=== PATIENT | female | born 1965 | race Hispanic/Latino ===

== ENCOUNTER 2024-01-25 19:18 | Inpatient (IN) | payer MEDICAID ==
[2024-01-25] VITALS (8 sets, daily range): BP systolic 91–150; BP diastolic 38–121
[~2024-01-25] VITALS: Ht 172.7 cm; Wt 48.7 kg
[~2024-01-25 19:18] MED LIST: ARICEPT10 MG PO; BOUDREAUXS BUTT TOP; COZAAR100 MG PO; MEMANTINE HYDROC5 MG PO
--- NOTE | 2024-01-25 19:50 | NUR ---
PT TO RM 10 VIA WHEELCHAIR
--- NOTE | 2024-01-25 20:00 | NUR ---
PT ARRIVED WITH 2X FAMILY MEMBERS, BROUGHT TO HOSPITAL FROM MRI OFFICE DUE TO STAFF TELLING THEM SHE NEED IMMEDIATE ATTENTION. PT DECUBITUS ULCERS TO BUTTOCK THAT PCP HAS BEEN TRYING TO TREAT FOR SEVERAL MONTHS WITH SUCCESS. MRI PAPERWORK SHOWED POSSIBLE ABCESS WITHIN THE WOUND AREA. PT BED BOUND AND REQUIRES FEEDING ASSISTANCE. FAMILY TAKES CARE OF HER AT HOME WITH HH DAILY. TAJIK SPEAKING WITH LITTLE COMMUNICATION. PT HAS HX OF DEMENTIA AND SCHIZOPHRENIA.
[2024-01-25] MEDS ORDERED: PIPERACILLIN Sodium-Tazobactam 3.375 GM in SODIUM CHLORIDE 0.9% 100 ML IV ONE (20:05)
[2024-01-25] MEDS ORDERED: VANCOMYCIN HCL 1 GM in SODIUM CHLORIDE 0.9% 250 ML IV ONE (20:05)
[2024-01-25] MEDS ORDERED: VANCOMYCIN HCL 1 GM/VIAL IV ONE (20:27)
[2024-01-25] MEDS ORDERED: MIRTAZAPINE15 MG PO (20:38)
[2024-01-25] MEDS ORDERED: PANTOPRAZOLE SO40 M1 PO (20:39)
[2024-01-25] MEDS ORDERED: DIVALPROEX125 MG PO (20:39)
[2024-01-25 20:44] LABS: BASO% 0.2 % (0-3); EOS% 0.6 % (0-8); HEMATOCRIT 45.4 % (37.0-47.0); HEMOGLOBIN 13.6 g/dl (12.0-16.0); IMMATURE GRANULOCYTES 0.1 % (0.0-5.0); LYMPH% 29.5 % (15-41); MEAN CELL VOLUME 98.7 fL CALC (80.0-100.0); MEAN CORPUSCULAR HGB 29.6 pG CALC (26.0-32.0); MONO% 6.4 % (2-13); NEUT# 5.33 thou/uL (2.00-7.15); NEUT% 63.2 % (42-76); RED BLOOD COUNT 4.6 mill/uL (4.20-5.60); RED CELL DISTRI WIDTH 13.2 % (11.5-15.5)
[2024-01-25 21:07] LABS: ALBUMIN 3.7 g/dL (3.2-5.0); BILIRUBIN, TOTAL 0.5 mg/dL (0.02-1.3); CREATININE 0.5 mg/dL (0.5-1.0); POTASSIUM 4.2 mmol/l (3.5-5.1); TOTAL PROTEIN 7.5 g/dL (6.3-8.2)
--- NOTE | 2024-01-25 21:21 | NUR ---
PT RESTING WITH FAMILY BEDSIDE, IV ABX RUNNING
[2024-01-25] MEDS ORDERED: ACETAMINOPHEN 325 MG/TAB PO PRN (21:30)
[2024-01-25] MEDS ORDERED: SODIUM CHLORIDE 0.9% 1,000 ML IV PRN (21:30)
[2024-01-25] MEDS ORDERED: MAGNESIUM HYDROXIDE 30 ML UDC PO PRN (21:30)
--- NOTE | 2024-01-25 21:45 | NUR ---
PT ADMITTED TO ICU 2, MS OVERFLOW. KEILA BASS TRANSPORTED VIA STRETCHER , NO TELE
--- NOTE | 2024-01-25 22:30 | NUR ---
Patient arrived from ED via stretcher with family at bedside. Patient is awake and alert but will not answer questions for me with the daughter interpreting. Also used the language line interpretor and patient would not answer any questions or follow commands. Patient is on room air, VS WNL, NSR on tele. Cleaned patient and placed purwick, wound care done, photos taken and in chart. Patient has large wound on midline of coccyx, stage 3. Other open areas on bilateral buttocks and purpple discoloration to area. Repositioned patient with multiple pillows, IV fluids running as ordered. All needs addressed, call light within reach, bed alarm on.
[2024-01-26] VITALS (28 sets, daily range): BP systolic 87–212; BP diastolic 48–183
--- NOTE | 2024-01-26 | NUR ---
Patient is resting in bed, does not appear to be in any distress. On room air, purwick in place, IV fluids running as ordered. VS WNL, NSR on tele monitor. All needs addressed. Call light within reach, bed alarm on.
--- NOTE | 2024-01-26 02:00 | NUR ---
Patient is sleeping, does not appear to be in any distress. On room air, purwick in place, VS WNL, NSR on monitor, IV fluids running as ordered. All needs addressed. Call light within reach, bed alarm on.
[2024-01-26] MEDS ORDERED: PIPERACILLIN Sodium-Tazobactam 3.375 GM in SODIUM CHLORIDE 0.9% 100 ML IV SCH ×2 (06:00→12:00)
[2024-01-26 06:04] LABS: BASO% 0.3 % (0-3); EOS% 0.6 % (0-8); LYMPH% 32.8 % (15-41); MEAN CELL VOLUME 94.4 fL CALC (80.0-100.0); MEAN CORPUSCULAR HGB 30.5 pG CALC (26.0-32.0); MEAN CORPUSCULAR HGB CONC 32.3 g/dL CAL (32.0-36.0); MONO% 6.7 % (2-13); NEUT# 4.65 thou/uL (2.00-7.15); NEUT% 59.6 % (42-76); RED BLOOD COUNT 3.57 mill/uL (4.20-5.60); RED CELL DISTRI WIDTH 13.2 % (11.5-15.5)
[2024-01-26 06:10] LABS: INTERNATIONAL NORMALIZED RATIO 1.1 RATIO (0.7-1.3)
[2024-01-26 06:14] LABS: BILIRUBIN, TOTAL 0.4 mg/dL (0.02-1.3); CHOLESTEROL HDL RATIO 3.6 (<4.4 (CALC)); CREATININE 0.5 mg/dL (0.5-1.0); HEMOGLOBIN 10.9 g/dl (12.0-16.0); MAGNESIUM 1.9 mg/dL (1.6-2.3); TOTAL PROTEIN 6.1 g/dL (6.3-8.2)
[2024-01-26 06:15] LABS: HEMATOCRIT 33.7 % (37.0-47.0)
[2024-01-26 06:34] LABS: PROTHROMBIN TIME 10.4 SECONDS (9.0-12.5)
[2024-01-26 06:37] LABS: ALBUMIN 2.9 g/dL (3.2-5.0); POTASSIUM 3.2 mmol/l (3.5-5.1)
[2024-01-26] MEDS ORDERED: hydrALAZINE HCL 20 MG/ML VIAL(1 ML) IV PRN (07:25)
[2024-01-26] MEDS ORDERED: POTASSIUM CHLORIDE 20MEQ 100 ML IV SCH (08:00)
--- NOTE | 2024-01-26 08:11 | NUR ---
PATIENT LYING ON L SIDE. ASSESSMENT COMPLETED (SEE INTERVENTIONS). PATIENT ALERT, BUT WILL NOT SPEAK. ATTEMPTED TO FEED PATIENT/GIVEN ORAL MEDS, BUT PATIENT CRIED OUT IF IN PAIN. CUFF REPOSITIONED AND NEW BP WITHIN NORMAL LIMITS. WILL CONTACT DAUGHTER TO OBTAIN ADDITIONAL INFORMATION. SAFETY MEASURES IN PLACE INCLUDING BED IN LOW POSITION, BED ALARM ON AND CALL LIGHT RESTING NEXT TO L ARM. NO APPARENT DISTRESS NOTED. WILL CONTINUE WITH PLAN OF CARE.
[2024-01-26] MEDS ORDERED: PANTOPRAZOLE SODIUM Sesquihydr 40 MG/TAB PO SCH (09:00)
[2024-01-26] MEDS ORDERED: VANCOMYCIN HCL 1 GM in SODIUM CHLORIDE 0.9% 250 ML IV SCH (09:00)
[2024-01-26] MEDS ORDERED: VALPROATE SODIUM 250 MG/5 ML SYRUP PO SCH (09:00)
[2024-01-26] MEDS ORDERED: VANCOMYCIN HCL 750 MG in SODIUM CHLORIDE 0.9% 235 ML IV SCH (09:00)
--- NOTE | 2024-01-26 11:26 | NUR ---
S: ARCELIARICHIE MAYI is a 58 F who presents with AN ABSCESS AND SACRAL DECUBITIS ULCER STAGE 2. She has a history of HTN, GERD, DEMENTIA ANDSCHIZOPHRENIA . All medications in patient's chart were reviewed. O: VS: BP 126/63 MM[facility] , P 91 BPM, RR 16 BPM ,T 97.5 F W 64kg, HT 62 IN, Scr= 0.5MG/DL,CrCl= 79.8ml/min A: Blood culture is pending P: Patient is on ZOSYN 3.375GM IV Q6H. VANCOMYCIN 1GM IV X 1 DOSE ON 01/25/24 @2100 Vancomycin ordered for pharmacy to dose. Start Vancomycin 750MG IV Q6H. Vancomycin trough is drawn before the 4th dose on 01/27/24 @0830. Vancomycin goal trough is between 10-15 mcg/ml. Pharmacy will follow and or advise on antibiotics use as needed.
--- NOTE | 2024-01-26 16:09 | NUR ---
PATIENT APPEARS TO BE RESTING WITH EYES CLOSED ON L SIDE. NO APPARENT DISTRESS NOTED. WILL CONTINUE [facility] PLAN OF CARE.
--- NOTE | 2024-01-26 18:12 | NUR ---
PATIENT LYING IN BE, LYING ON L SIDE. NO APPARENT DISTRESS NOTED. SON AT BEDSIDE. WILL CONTINUE TO MONITOR.
--- NOTE | 2024-01-26 19:45 | NUR ---
NOTIFIED DR. NUNEZ THAT THE PATIENT IS TOO LETHARGIC AND NOT FOLLOWING COMMANDS ENOUGH TO TAKE PO MEDICATIONS. DR. NUNEZ WILL FOLLOW UP IN AM.
[2024-01-26] MEDS ORDERED: ENOXAPARIN SODIUM 40 MG/0.4 ML SYR SC SCH (21:00)
[2024-01-26] MEDS ORDERED: MIRTAZAPINE 15 MG/TAB PO SCH (21:00)
--- NOTE | 2024-01-26 21:00 | NUR ---
PATIENT IS RESPONSIVE TO PAIN BUT DOES NOT FOLLOW COMMANDS. PATIENT SPOKE UNINTELLIGBLE NEW ZEALANDER WHEN LOVENOX INJECTION WAS GIVEN AND YELLED WHILE GRIMACING FACE BUT SETTLED DOWN IMMEDIATELY AFTER INJECTION WAS GIVEN. PATIENT DOES NOT OPEN EYES WHEN SPOKEN TO.
[2024-01-26] MEDS ORDERED: SODIUM CHLORIDE 0.9% 0 ML IV ONE (21:03)
[2024-01-27] VITALS (14 sets, daily range): BP systolic 102–134; BP diastolic 49–100
--- NOTE | 2024-01-27 | NUR ---
PATIENT LAYING IN BED ON LEFT SIDE WITH EYES CLOSED. NO CHANGE SINCE INTIAL ASSESSMENT.
--- NOTE | 2024-01-27 02:00 | NUR ---
PATIENT RESTING IN BED WITH EYES CLOSED. NO CHANGE SINCE INITIAL ASSESSMENT. ATTEMPTED TO REPOSITION AND PATIENT SCREAMED WHILE GRIMACING FACE. PER DAY SHIFT RN THE PATIENT'S FAMILY STATED THAT THE PATIENT FAVORS LAYING ON HER LEFT SIDE AND IS MOST COMFORTABLE IN THAT POSITION.
--- NOTE | 2024-01-27 05:44 | NUR ---
LINEN CHANGE COMPLETED. PATIENT YELLED MULTIPLE TIMES WHILE TURNING. PLACED PILLOWS TO OFF LOAD KNEES AND BUTTOCKS. PLACED DUODERM AND MEPILEX ON BUTTOCKS/COCCYX. OPTIFOAM PLACED TO ABRASION ON LEFT KNEE.
[2024-01-27 07:25] LABS: BASO% 0.5 % (0-3); EOS% 2.1 % (0-8); HEMATOCRIT 29.3 % (37.0-47.0); HEMOGLOBIN 9.4 g/dl (12.0-16.0); IMMATURE GRANULOCYTES 0.2 % (0.0-5.0); LYMPH% 25.8 % (15-41); MEAN CELL VOLUME 94.5 fL CALC (80.0-100.0); MEAN CORPUSCULAR HGB 30.3 pG CALC (26.0-32.0); MEAN CORPUSCULAR HGB CONC 32.1 g/dL CAL (32.0-36.0); NEUT# 4.14 thou/uL (2.00-7.15); NEUT% 63.4 % (42-76); RED BLOOD COUNT 3.1 mill/uL (4.20-5.60); RED CELL DISTRI WIDTH 13.2 % (11.5-15.5)
[2024-01-27 07:37] LABS: ALBUMIN 2.8 g/dL (3.2-5.0); BILIRUBIN, TOTAL 0.5 mg/dL (0.02-1.3); CREATININE 0.5 mg/dL (0.5-1.0); MAGNESIUM 1.8 mg/dL (1.6-2.3); POTASSIUM 2.9 mmol/l (3.5-5.1)
--- NOTE | 2024-01-27 08:00 | NUR ---
PATIENT LYING ON L SIDE. ASSESSMENT COMPLETED (SEE INTERVENTIONS). PATIENT ALERT, BUT DOES NOT SPEAK. SR ON THE MONITOR. AFEBRILE AT 98.3. SAFETY MEASURES IN PLACE INCLUDING BED IN LOW POSITION AND CALL LIGHT RESTING NEXT TO R ARM. NO APPARENT DISTRESS NOTED. WILL CONTINUE WITH PLAN OF CARE.
[2024-01-27] MEDS ORDERED: POTASSIUM CHLORIDE 20MEQ 100 ML IV SCH (09:30)
[2024-01-27] MEDS ORDERED: Pantoprazole Sodium 40 MG VIAL (Protonix) IV SCH (10:00)
--- NOTE | 2024-01-27 10:00 | NUR ---
PATIENT LYING IN BED ATTEMPTING TO EAT WITH SON AT BEDSIDE. SR ON THE MONITOR. NO APPARENT DISTRESS NOTED. WILL CONTINUE [facility] PLAN OF CARE.
--- NOTE | 2024-01-27 10:09 | NUR ---
S: ARCELIARICHIE SEE is a 58 F who presents with LEFT GLUTEAL ABSCESS/CELLULITIS AND SACRAL DECUBITIS ULCER. All medications in patient's chart were reviewed. O: VS: BP 114/51 MMHG, P 100 BPM, RR 14 BPM ,T 98.1 F W 48 kg, HT 62 IN, Scr=0.5 MG/DL ,CrCl= 90 ml/min TROUGH - 13 A: Blood culture is pending P: Patient is on 3.375GM IV Q6H. Vancomycin ordered for pharmacy to dose. CONTINUE Vancomycin 750 IV Q12H. Vancomycin trough is drawn before the 4th dose on 01/28/24 @2030. Vancomycin goal trough is between 10-15 mcg/ml. Pharmacy will follow and or advise on antibiotics use as needed.
--- NOTE | 2024-01-27 12:00 | NUR ---
PATIENT LYING IN BED ON L SIDE. SON REFUSED REPOSITIONING ON PATIENT'S BEHALF, STATING PATIENT "LIKES TO BE ON THAT SIDE". SON EDUCATED ON THE IMPORTANCE OF REPOSITIONING AND VERBALIZED UNDERSTANDING. SR ON THE MONITOR. NO APPARENT DISTRESS NOTED. WILL CONTINUE [facility] PLAN OF CARE.
[2024-01-27] MEDS ORDERED: HALOPERIDOL LACTATE 5 MG/ML SDV IV PRN (12:10)
[2024-01-27] MEDS ORDERED: DiphenhydrAMINE HCL 50 MG/ML SDV IV PRN (12:15)
--- NOTE | 2024-01-27 16:06 | NUR ---
PATIENT APPEARS TO BE RESTING WITH EYES CLOSED. SON AT BEDSIDE. NO APPARENT DISTRESS NOTED. WILL CONTINUE WITH PLAN OF CARE.
[2024-01-27] MEDS ORDERED: MORPHINE SULFATE 4 MG/ML VIAL IV PRN (17:10)
--- NOTE | 2024-01-27 17:30 | NUR ---
PATIENT REPOSITIONED TO R SIDE PER SON'S REQUEST. ATTEMPTED TO FEED PATIENT DINNER, BUT SEEMED DISINTERESTED. NO OTHER ISSUES OR CONCERNS AT THIS TIME. SR ON THE MONITOR. WILL CONTINUE TO MONITOR.
--- NOTE | 2024-01-27 20:00 | NUR ---
Report received from daysnjft nurse. Patient is resting in bed, alert but non verbal with staff per baseline. On room air, IV fluids running as ordered. Purwick in place. Repositioned. Family at bedside. VS WNL, NSR on tele monitor. All needs addressed. Call light within reach, bed alarm on.
[2024-01-28] VITALS (12 sets, daily range): BP systolic 109–147; BP diastolic 53–104
--- NOTE | 2024-01-28 | NUR ---
Patient is sleeping, does not appear to be in any distress. On room air, purwick in place. Repositioned. IV fluids running as ordered. All needs addressed, call light within reach, bed alarm on.
[2024-01-28 05:11] LABS: ALBUMIN 2.8 g/dL (3.2-5.0); BILIRUBIN, TOTAL 0.4 mg/dL (0.02-1.3); CREATININE 0.5 mg/dL (0.5-1.0); MAGNESIUM 1.8 mg/dL (1.6-2.3); POTASSIUM 2.9 mmol/l (3.5-5.1); TOTAL PROTEIN 5.8 g/dL (6.3-8.2)
[2024-01-28 05:21] LABS: BASO% 0.4 % (0-3); EOS% 1.6 % (0-8); HEMATOCRIT 29.8 % (37.0-47.0); HEMOGLOBIN 9.5 g/dl (12.0-16.0); IMMATURE GRANULOCYTES 0.3 % (0.0-5.0); LYMPH% 25.5 % (15-41); MEAN CELL VOLUME 95.8 fL CALC (80.0-100.0); MEAN CORPUSCULAR HGB 30.5 pG CALC (26.0-32.0); MEAN CORPUSCULAR HGB CONC 31.9 g/dL CAL (32.0-36.0); MONO% 8.3 % (2-13); NEUT# 4.96 thou/uL (2.00-7.15); NEUT% 63.9 % (42-76); RED BLOOD COUNT 3.11 mill/uL (4.20-5.60); RED CELL DISTRI WIDTH 13.2 % (11.5-15.5)
[2024-01-28] MEDS ORDERED: POTASSIUM CHLORIDE 20MEQ 100 ML IV SCH ×2 (06:35→15:50)
--- NOTE | 2024-01-28 08:55 | NUR ---
patient in bed semi mckeon postion; non verbal; no s/s of distress; room air; breathing unlabored and even; tele leads are attached with no issues; female purwick working with clear yellow urine output; iv site in left forearm working with no issues running with NS @ 100; medication reviwed; refused to eat breakfast with several attempts with MATERIALS HANDLER and myself; call light within reach,personal items within reach, bed in lowest postion; bed alarm activated
[2024-01-28] MEDS ORDERED: FUROSEMIDE 40 MG/4 ML SDV IV SCH (09:00)
--- NOTE | 2024-01-28 10:39 | NUR ---
PATIENT RESTING IN BED; ROOM AIR; BREATHING UNLABORED AND EVEM; PATIENT NON VERBAL; NO S/S OF DISTRESS; NO SIGNS OF PAIN; PURWICK WORKING WITH NO ISSUES; TELE LEADS ARE ATTACHED AND WORKING WITH NO ISSUES; IV SITE CLEAN AND INTACT RUNNING WITH POTASSIUM AT THIS;CALLED SON ON CHART AYO TO GET VERBAL CONSENT TO GET TO COMPLETE L GLUTEAL FLUID COLLECTION ASPRIATION AND GOT VERBAL CONSENT; CALL LIGHT WITHIN REACH, PERSONAL ITEMS WITHIN REACH, BED IN LOWEST POSTION
--- NOTE | 2024-01-28 11:03 | NUR ---
CONSENT FORM COMPLETED AND SIGNED WITH RAKEL CHRISTIAN. VERBAL ORDER
--- NOTE | 2024-01-28 12:00 | NUR ---
PATIENT WITH ULTROSOUND WITH HEAD HOUSEKEEPER
--- NOTE | 2024-01-28 14:37 | NUR ---
RESTING IN BED; BREATHING UNLABORED AND EVEN; ROOM AIR; IV SITE CLEAN AND INTACT; TELE LEADS ARE ATTACHED AND WORKING WITH NO ISSUES; FEMALE PURWICK WORKING WITH NO ISSUE WITH CLEAR YELLO URINE; PATIENT ON LEFT SIDE; CALL LIGHT WITHIN REACH,PERSONAL ITEMS WITHIN REACH, BED IN LOWEST POSTION; BED ALARM ACTIVATED
--- NOTE | 2024-01-28 16:23 | NUR ---
PATIENT MOVING AROUND IN BED; ATTEMPTING TO GE UP AND YELLING; SECOUND DOSE OF HARADOL 5MG GIVEN; TELE LEADS ARE ATTACHED ADN WORKING; MALE PURWCIK WORKING WITH NO ISSUES; ON ; SEMI [place] INBED; TV ON; CALL LIGHT WITHIN REAC, BED IN LOWEST POSTION; BED ALARM ACTIVATED; PERSONAL ITEMS WITHIN REACH
--- NOTE | 2024-01-28 16:32 | NUR ---
PATIENT AWAKE IM BED; ROOM AIR; BREATHING UNLABORED AND EVEN; FAMILY IN ROOM WITH PATIENT; TELE LEADS ARE ATTACHED AND WORKING WITH NO ISSUES; IV SITE CLEAN AND INTACT RUNNING WITH POTASSIUM; NO S/S OF DISTRESS AT THIS TIME; MEDICATION REVIEWED; CALL LIGHT WITHIN REACH. PERSONAL ITEMS WITHIN REACH, BED IN LOWEST POSTION; BED ALARM ON
--- NOTE | 2024-01-28 18:16 | NUR ---
PATIENT AWAKE IN BED; NO VISUAL SIGNS OR PAIN OR DISOMFORT; FEMALE PURWICK WORKING WITH NO ISSUES; TELE LEADS ARE WORKING WITH NO ISSUES; IV SITE CLEAN AND INTACT RUNNING WITH ZOSYN; NO S/S OF DISTRESS; ROOM AIR; BREATHING UNLABORED AND EVEN; CALL LIGHT WITHIN REACH,BED IN LOWEST POSTION; BED ALARM ACTIVATED
--- NOTE | 2024-01-28 19:30 | NUR ---
Report received from dayshift nurse. Patient is resting in bed, does not appear to be in any distress. Patient is nonverbal per baseline, does not answer questions or follow commands. On room air, IV fluids running as ordered, purwick in place. VS WNL, NSR on monitor. All needs addressed, call light within reach, bed alarm on.
[2024-01-29] VITALS (13 sets, daily range): BP systolic 102–152; BP diastolic 57–108
--- NOTE | 2024-01-29 | NUR ---
Patient is sleeping, does not appear to be in any distress. On room air, IV fluids running as ordered. VS WNL, NSR on monitor. Repositioned. All needs addressed, call light within reach, bed alarm on.
[2024-01-29 05:40] LABS: BASO% 0.5 % (0-3); EOS% 2.2 % (0-8); HEMOGLOBIN 9.9 g/dl (12.0-16.0); IMMATURE GRANULOCYTES 0.1 % (0.0-5.0); LYMPH% 23.5 % (15-41); MEAN CELL VOLUME 95.4 fL CALC (80.0-100.0); MEAN CORPUSCULAR HGB 30.5 pG CALC (26.0-32.0); MEAN CORPUSCULAR HGB CONC 31.9 g/dL CAL (32.0-36.0); MONO% 9.3 % (2-13); NEUT# 4.75 thou/uL (2.00-7.15); NEUT% 64.4 % (42-76); RED BLOOD COUNT 3.25 mill/uL (4.20-5.60); RED CELL DISTRI WIDTH 13.3 % (11.5-15.5)
[2024-01-29 05:45] LABS: ALBUMIN 2.8 g/dL (3.2-5.0); BILIRUBIN, TOTAL 0.5 mg/dL (0.02-1.3); CREATININE 0.5 mg/dL (0.5-1.0); MAGNESIUM 1.7 mg/dL (1.6-2.3); POTASSIUM 3.3 mmol/l (3.5-5.1); TOTAL PROTEIN 5.9 g/dL (6.3-8.2)
[2024-01-29] MEDS ORDERED: POTASSIUM CHLORIDE 20MEQ 100 ML IV SCH (10:00)
--- NOTE | 2024-01-29 14:03 | NUR ---
S: RICHIE PANIAGUA MAYI is a 58 F who presents with abscess. She has a history of hypertension, GERD, and dementia. All medications in patient's chart were reviewed. O: VS: BP 151/84, P 81, RR 13,T 98 F W 68 kg, HT 173 cm, Scr=0.5,CrCl= 108.4 ml/min Vancomycin Trough: 14 mcg/ml A: Blood culture is pending Vancomycin trough within goal therapeutic range of 10-15. No change in dose warranted. P: Patient is on Zosyn 3.375 g IV Q6H and vancomycin 750 mg IV q12h. Vancomycin ordered for pharmacy to dose. Continue Vancomycin 750 mg IV Q12H. Vancomycin trough is drawn before the dose on 01/30/24 at 0830. Vancomycin goal trough is between 10-15 mcg/ml. Pharmacy will follow and or advise on antibiotics use as needed.
[2024-01-29] MEDS ORDERED: SODIUM CHLORIDE 0.9% 0 ML IV ONE (20:17)
[2024-01-30] VITALS (12 sets, daily range): BP systolic 98–160; BP diastolic 46–91
--- NOTE | 2024-01-30 00:25 | NUR ---
Pt Is Alert but non verbal at base line. Med were given per sep order. Pt is reposition q2. edcuated family on plan of care at bedside. bed is at it lowest level, call light and personal item with reach. plan of care is ongoing.
--- NOTE | 2024-01-30 02:04 | NUR ---
pt is resting with eyes close. no sign of distress. bed is at it lowest level, callight and personal item within reach. paln of care is ongoing.
[2024-01-30 05:41] LABS: BASO% 0.6 % (0-3); EOS% 3.1 % (0-8); HEMATOCRIT 32.2 % (37.0-47.0); HEMOGLOBIN 10.1 g/dl (12.0-16.0); IMMATURE GRANULOCYTES 0.6 % (0.0-5.0); LYMPH% 17.1 % (15-41); MEAN CELL VOLUME 95.5 fL CALC (80.0-100.0); MEAN CORPUSCULAR HGB CONC 31.4 g/dL CAL (32.0-36.0); MONO% 8.9 % (2-13); NEUT# 5.62 thou/uL (2.00-7.15); NEUT% 69.7 % (42-76); RED BLOOD COUNT 3.37 mill/uL (4.20-5.60); RED CELL DISTRI WIDTH 13.2 % (11.5-15.5)
[2024-01-30 05:52] LABS: ALBUMIN 2.7 g/dL (3.2-5.0); BILIRUBIN, TOTAL 0.5 mg/dL (0.02-1.3); CREATININE 0.7 mg/dL (0.5-1.0); MAGNESIUM 1.6 mg/dL (1.6-2.3); TOTAL PROTEIN 5.7 g/dL (6.3-8.2)
--- NOTE | 2024-01-30 07:10 | NUR ---
PT LAYING IN BED IN THE SUPINE POSITION, PT AROUSES TO VERBAL STIMULI, PT IS NONE VERBAL BUT DOES YELL OR GRUNT AND PUSHES YOU AWAY WITH HER HAND, PUPILS ARE PERRL, LUNG SOUNDS CLEAR, ABD SOFT WITH ACTIVE BOWEL SOUNDS, STRONG RADIAL AND PEDAL PULSES, 22G LFA IV WITH FLUIDS INFUSING AT PRESCRIBED RATE, PT REPOSITIONED TURNED ON RIGHT SIDE, SAFETY MEASURES REINFORCED, CALL CHERY WITHIN REACH
--- NOTE | 2024-01-30 09:00 | NUR ---
PT LAYING BED RESTING WITH EYES CLOSED, AROUSES EASILY TO VERBAL STIMULI, PT DOES NOT SHOW ANY SIGNS OF DISTRESS
[2024-01-30 09:23] LABS: POTASSIUM 2.8 mmol/l (3.5-5.1)
[2024-01-30] MEDS ORDERED: POTASSIUM CHLORIDE 20MEQ 100 ML IV SCH (11:00)
[2024-01-30] MEDS ORDERED: MAGNESIUM SULFATE HEPTAHYDRATE 50 ML IV SCH (11:00)
--- NOTE | 2024-01-30 11:10 | NUR ---
PT CLEANED UP AND REPOSITIONED TO L SIDE
--- NOTE | 2024-01-30 12:00 | NUR ---
ATTEMPTED TO FEED PT AND GIVE HER SOMETHING TO DRINK, PT CLOSED HER MOUTH TIGHTLY AND SHOCK HER HEAD NO, PT SHOWS NO SIGNS OF DISTRESS
--- NOTE | 2024-01-30 14:09 | NUR ---
VISITOR AT BEDSIDE, PT DRINKING ENSURE FOR VISITOR AND TOLERATING WELL
--- NOTE | 2024-01-30 15:55 | NUR ---
PT CLEANED AND REPOSITIONED
--- NOTE | 2024-01-30 16:50 | NUR ---
LAB AT BEDSIDE
[2024-01-30 17:19] LABS: CREATININE 0.7 mg/dL (0.5-1.0)
[2024-01-30 17:22] LABS: MAGNESIUM 2.2 mg/dL (1.6-2.3); POTASSIUM 3.8 mmol/l (3.5-5.1)
--- NOTE | 2024-01-30 17:32 | NUR ---
PT RESTING WITH EYES CLOSED, AROUSES EASILY TO VERBAL STIMULI
--- NOTE | 2024-01-30 19:30 | NUR ---
Report received from [facility] nurse. Patient is resting in bed, occasionally moaning. Son at bedside. IV fluids running as ordered, purwick in place. VS WNL, NSR on tele monitor. Patient will say a few words but does not answer questions or follow commands. All needs addressed, call light within reach, bed alarm on.
--- NOTE | 2024-01-30 21:15 | NUR ---
BED BATH GIVEN, WOUND CARE TO COCCYX WITH MEDIHONEY DONE. PATIENT REPOSITIONED.
[2024-01-31] VITALS (10 sets, daily range): BP systolic 86–150; BP diastolic 51–81
--- NOTE | 2024-01-31 | NUR ---
Patient is resting in bed, does not appear to be in any distress. On room air, IV fluids running as ordered, purwick in place. VS WNL, NSR on tele monitor. Repositioned. All needs addressed, call light within reach, bed alarm on.
--- NOTE | 2024-01-31 04:00 | NUR ---
Patient is sleeping, does not appear to be in any distress. On room air, IV fluids running as ordered, purwick in place. VS WNL, NSR on tele monitor. Repositioned. All needs addressed, call light within reach, bed alarm on.
[2024-01-31] MEDS ORDERED: BACTRIM DS1 TAB PO (05:30)
[2024-01-31 05:44] LABS: BASO% 0.4 % (0-3); EOS% 2.5 % (0-8); HEMATOCRIT 28.2 % (37.0-47.0); IMMATURE GRANULOCYTES 0.1 % (0.0-5.0); LYMPH% 24.5 % (15-41); MEAN CELL VOLUME 96.2 fL CALC (80.0-100.0); MEAN CORPUSCULAR HGB 30.7 pG CALC (26.0-32.0); MEAN CORPUSCULAR HGB CONC 31.9 g/dL CAL (32.0-36.0); MONO% 9.2 % (2-13); NEUT# 4.6 thou/uL (2.00-7.15); NEUT% 63.3 % (42-76); RED BLOOD COUNT 2.93 mill/uL (4.20-5.60); RED CELL DISTRI WIDTH 13.5 % (11.5-15.5)
[2024-01-31 05:55] LABS: ALBUMIN 2.5 g/dL (3.2-5.0); BILIRUBIN, TOTAL 0.4 mg/dL (0.02-1.3); CREATININE 0.8 mg/dL (0.5-1.0); MAGNESIUM 2.1 mg/dL (1.6-2.3); TOTAL PROTEIN 5.5 g/dL (6.3-8.2)
[2024-01-31 06:05] LABS: POTASSIUM 2.7 mmol/l (3.5-5.1)
--- NOTE | 2024-01-31 07:10 | NUR ---
PT LAYING IN BED AWAKE, PT WILL FOLLOW YOU WITH HER EYES, PUPILS PERRL, LUNG SOUNDS CLEAR, STRONG RADIAL AND PEDAL PULSES, 22G L FA IV WITH FLUIDS INFUSING AT PRESCRIBED RATE, PURE WICK IN PLACE, SAFETY MEASURES REINFORCED, CALL CHERY WITHIN REACH
[2024-01-31] MEDS ORDERED: POTASSIUM CHLORIDE 20MEQ 100 ML IV SCH (08:00)
--- NOTE | 2024-01-31 09:05 | NUR ---
PT LAYING IN BED RESTING WITH EYES CLOSED, AROUSES EASILY TO VERBAL STIMULI, ATTEMPTED TO FEED PT WITH NO SUCCESS
--- NOTE | 2024-01-31 11:55 | NUR ---
DAUGHTER CALL, UPDATE ON DISCHARGE PLAN WAS GIVEN TO HER
--- NOTE | 2024-01-31 12:00 | NUR ---
ATTEMPTED TO FEED PT AND GIVE HER SOMETHING TO DRINK, PT CLENCH HER LIPS TIGHT, WILL ATTEMPT AGAIN AT A LATER TIME
--- NOTE | 2024-01-31 12:12 | NUR ---
LAB AT BEDSIDE
--- NOTE | 2024-01-31 13:55 | NUR ---
SPOKE TO DAUGHTER MARISELA IN REGARDS TO PT BEING DISCHARGED, FAMILY ARE SUPPOSE TO COME AROUND 3:30 AND 4:00
--- NOTE | 2024-01-31 15:58 | NUR ---
PT'S DAUGHTER MARISELA CALLED THEY ARE UNABLE TO PICK THE PT UP UNTIL AROUND 7PM
--- NOTE | 2024-01-31 17:45 | NUR ---
PT LAYING IN BED WATCHING TV, PT SHOWS NO SIGNS OF DISTRESS
--- NOTE | 2024-01-31 19:15 | NUR ---
Report received from dayshift nurse. Patient is resting in bed, does not apper to be in any pain. Patient is alert but does not respond to questions. On room air, purwick in place, VS WNL, NSR on tele monitor. All needs addressed, call light within reach, bed alarm on.
--- NOTE | 2024-01-31 19:45 | NUR ---
Son here to pick patient up to take her home. Patient changed, wound care to coccyx with medihoney done. IV removed. Discharge paperwork explained and given to son, signed by son.
== END 2024-01-31 19:40 | DRG 603 ==
LOC: ED 19:18 → ED-I 21:02 → ED 21:19 → ICU 21:20
PROVIDERS: Family Medicine; ADMIT Student in an Organized Health Care Education/Training Program; ATTEND Student in an Organized Health Care Education/Training Program
DX: L03.317 Cellulitis of buttock (principal); L02.31 Cutaneous abscess of buttock; L89.152 Pressure ulcer of sacral region, stage 2; I10 Essential (primary) hypertension; F03.C0 Unspecified dementia, severe, without behavioral disturbance, psychotic disturbance, mood disturbance, and anxiety; E83.42 Hypomagnesemia; E87.6 Hypokalemia; K21.9 Gastro-esophageal reflux disease without esophagitis; F20.9 Schizophrenia, unspecified; M62.49 Contracture of muscle, multiple sites; R62.7 Adult failure to thrive; Z68.31 Body mass index [BMI] 31.0-31.9, adult; Z20.822 Contact with and (suspected) exposure to COVID-19; Z74.01 Bed confinement status
CPT/HCPCS: J1650; J2470; J3370; J3475